=== PATIENT | male | born 1945 | race Caucasian/White ===

== ENCOUNTER 2018-06-18 13:00 | Day surgery (SDC) | payer MEDICARE, OTHER, SELFPAY ==
[2018-06-04 07:36] VITALS: BMI 20.7
[2018-06-18] VITALS (9 sets, daily range): BP systolic 94–156; BP diastolic 60–82; PULSE 64–77; RESP 8–15; TEMP 35.9–36.8; O2SAT 96–99; BMI 20.7
[2018-06-18] MEDS: LACTATED RINGERS 1,000 ML 100 ML IV (14:28)
--- NOTE | 2018-06-18 14:55 | PM.PREOP ---
Pre-operative Note Interval Note Pre-op Check: Yes History & Physical Reviewed by Physician and Yes Exam Performed Changes: No
[2018-06-18] MEDS: CEFAZOLIN 2 GM/100 ML FROZ.PIGGY IV (15:12)
[2018-06-18] MEDS: LACTATED RINGERS 1,000 ML 42 ML IV (15:12)
--- NOTE | 2018-06-18 15:27 | SUR.OPER ---
Supine on padded OR bed, head on pillow, arms secured on padded arm boards at <90 degrees abduction, legs uncrossed, safety belt at thigh, tape over blanket over lower legs.
[2018-06-18] MEDS: BUPIVACAINE 0.5% (PF) VIAL 30 ML INJ (15:32)
--- NOTE | 2018-06-18 16:41 | PM.OP.1 ---
Operative Date/Time/Diagnoses Date of procedure: 06/18/18 Time of procedure: 16:30 Pre-op diagnosis: Right inguinal hernia reducible Post-op diagnosis: same (Large indirect hernia along with a direct component.) Procedure & Clinicians Procedure: Repair of hernia with plug and patch technique. Same procedure as scheduled: Yes Indications: Symptomatic hernia Surgeon: Dakota Luo Click Yes if Unassisted: Yes Anesthesia Type: General Operative Notes Findings: Large direct and indirect hernia Closure Type: primary Specimen(s): none sent Implants & Drains: Mesh Estimated Blood Loss (mL): 5 Blood products transfused: none Procedure in detail: The patient was placed supine on the operating room table and underwent general LMA anesthesia. He was prepped and draped in the usual fashion. A transverse incision was made overlying the internal ring and carried down to the level of the external oblique. The external oblique was opened parallel with its fibers through the external ring. The cord structures were elevated. The cremaster was opened proximally and search made for an indirect sac. 1 was found of from surrounding structures. It was opened and found to have no contents. It was suture ligated with 3 0 Vicryl at the level of the deep epigastric vessels. Distal sac was removed. The stump was allowed to retract.. The floor was examined and was found to be essentially obliterated. I opened the floor and dissected the preperitoneal fat off the anterior abdominal wall up to the area of the indirect hernia. I placed a large plug in this defect and tacked it into place with interrupted Ethibond sutures. I then closed the floor over it in a modified shoulder ice repair technique using 0 Tycron suture material. A patch was placed across the floor and tacked at the pubic tubercle, the posterior lamella of the anterior rectus sheath, the ilioinguinal ligament, and superior lateral to the cord. The opening was modified as necessary to prevent tight constriction of the cord. Sutures of 0 Tycron were used to secure the mesh. The external oblique was closed with a running 3 0 Vicryl The subcu was closed with interrupted 3 0 Vicryl. The skin was closed with a running 4 0 Vicryl subcuticular stitch and Steri-Strips. Dressing was applied, the patient was awakened, and the patient was taken to the recovery area in good condition. Complications: none Condition: stable Disposition: PACU Plan for aftercare: Follow-up 10-14 days in the office
[2018-06-18] MEDS: fentaNYL 100 MCG/2 ML INJ 50 MCG IV ×2 (16:48→16:55)
[2018-06-18] MEDS: ONDANSETRON 4 MG/2 ML INJ IV (16:56)
[2018-06-18] MEDS: LORazepam 2 MG/ML SYRINGE 1 MG IV (17:16)
--- NOTE | 2018-06-18 17:16 | SUR.PHASEI ---
RECD REPORT AND PATIENT FROM JOEL LOCKWOOD
== END 2018-06-18 18:05 | disposition home or self-care (01) ==
PROVIDERS: Family Provider Family Medicine; PCP Family Medicine; Visit Provider Specialist
PROC: (CPT 49505; principal; 2018-06-18 14:45)
DX: K40.90 Unilateral inguinal hernia, without obstruction or gangrene, not specified as recurrent (principal); E11.9 Type 2 diabetes mellitus without complications; Z79.84 Long term (current) use of oral hypoglycemic drugs
CPT/HCPCS: 49505; C1781; J0690; J2060; J2405; J2704; J3010

== ENCOUNTER → 2018-09-29 14:23 | Outpatient (REF) | payer MEDICARE, OTHER, SELFPAY ==
[2018-09-29 14:45] LABS: Influenza A and B by PCR Rapid Negative (Negative)
== END ==
LOC: LAB 14:23
PROVIDERS: Family Provider Family Medicine; PCP Family Medicine; Visit Provider Family Medicine
DX: Z11.59 Encounter for screening for other viral diseases (principal)
CPT/HCPCS: 87400

== ENCOUNTER → 2022-07-26 14:27 | Outpatient (CLI) | payer MEDICARE, OTHER, SELFPAY ==
--- NOTE | 2022-07-26 14:31 | DI.MRI.S_ITS ---
PROCEDURE: MR LUMBAR SPINE WO CON INDICATIONS: LUMBAR STENOSIS/RADICULOPATHY,CERVICAL REGION TECHNIQUE: Noncontrast sagittal T1 spin echo and T2 fast echo, coronal T2, sagittal STIR, and T2 fast spin echo through the lumbar spine. In cases with scoliosis, additional coronal T2 fast spin echo may be performed. COMPARISON: [facility] Outside Film, CR, XR LUMBAR SPINE WITH OBLIQUES, 06/04/2022, 15:05. FINDINGS: Image quality: Excellent. Alignment and Curvature: 5 lumbar type vertebral bodies are present by plain film. Loss of normal lumbar lordosis. Mild diffuse leftward curvature of the lumbar spine. 4 mm of retrolisthesis of L1 on L2. 3 mm of retrolisthesis of L2 on L3 and L4 on L5. 4 mm of anterolisthesis of L5 on S1. Bone Marrow: Marrow is of normal overall signal. No acute vertebral body compression fractures. There is mild reactive signal throughout the endplates of the thoracolumbar spine. Spinal Cord: Conus medullaris terminates at the mid L1 level. Visualized cord demonstrates normal signal and size. Paraspinous Soft Tissues: No paravertebral masses. T12-L1: Mild disc height loss and desiccation. Mild diffuse disc bulge. Mild facet and ligamentum flavum hypertrophy. Mild epidural lipomatosis. Mild canal stenosis. No foraminal stenosis. L1-L2: Moderate disc desiccation. Mild disc height loss and diffuse disc bulge. Mild facet and ligamentum flavum hypertrophy. Mild canal stenosis. Mild bilateral foraminal stenosis. L2-L3: Moderate disc desiccation. Mild disc height loss and diffuse disc bulge. Mild facet and ligamentum flavum hypertrophy. Mild canal stenosis. Mild bilateral foraminal stenosis. L3-L4: Moderate disc desiccation. Mild disc height loss and diffuse disc bulge. Mild facet and ligamentum flavum hypertrophy. Mild epidural lipomatosis. Mild canal stenosis. Mild left and moderate right foraminal stenosis. L4-L5: Moderate disc height loss and desiccation. Moderate diffuse disc bulge. Mild facet and ligamentum flavum hypertrophy. Mild epidural lipomatosis. Mild canal stenosis. Moderate left greater than right foraminal stenosis. L5-S1: Moderate disc height loss and desiccation. Mild diffuse disc bulge with superimposed broad-based left posterolateral protrusion. Moderate facet hypertrophy. Mild canal stenosis. Severe left and mild right foraminal stenosis. Posterior deviation of the left S1 nerve root within the lateral recess. Compression of the left L5 nerve root within the neural foramen. IMPRESSION: 1. Multilevel degenerative disc and facet disease, as well as ligamentum flavum hypertrophy and epidural lipomatosis. 2. Mild multilevel canal stenosis. 3. Neural foraminal and lateral recess stenosis at L5-S1 associated with neural compression/deviation as described above. Recommend correlation with clinical symptoms to ascertain relevance of these findings. Dictated by: Homero Ramesh M.D. on 07/26/2022 at 16:17 Transcribed by: DOUGLAS on 07/26/2022 at 16:22 Approved by: Homero Ramesh M.D. on 07/26/2022 at 16:51
--- NOTE | 2022-07-26 14:31 | DI.MRI.S_ITS ---
PROCEDURE: MR CERVICAL SPINE WO CON INDICATIONS: LUMBAR STENOSIS/RADICULOPATHY,CERVICAL REGION TECHNIQUE: Noncontrast sagittal T1 spin echo and T2 fast spin echo, sagittal STIR, foraminal oblique sagittal T2 fast spin echo, and axial gradient echo or T2 fast spin echo through the cervical spine. COMPARISON: None. FINDINGS: Image quality: Excellent. Alignment and Curvature: 3 mm of retrolisthesis of C3 on C4. Bone Marrow: Marrow demonstrates normal overall signal. C6-C7 ankylosis anteriorly. Moderate reactive signal within the endplates adjacent to the C3-C4 and. C5-C6 intervertebral discs. Mild reactive signal adjacent to the remaining cervical and visualized upper thoracic intervertebral discs. Spinal Cord: Visualized spinal cord has normal size and signal. No cerebellar tonsillar herniation. Paraspinous Soft Tissues: No paravertebral masses. Prevertebral soft tissues are normal in thickness. C2-C3: Moderate disc desiccation. Mild diffuse disc bulge. Mild facet and uncovertebral hypertrophy. Mild canal stenosis. Moderate left and mild right foraminal stenosis. C3-C4: Moderate disc height loss and desiccation. Moderate diffuse disc bulge/osteophyte with superimposed broad-based right posterolateral protrusion/osteophyte. Moderate facet and uncovertebral hypertrophy bilaterally. Severe canal stenosis. Mild cord flattening. Severe right greater than left foraminal stenosis with right greater than left C4 nerve root compression. C4-C5: Mild disc height loss. Moderate disc desiccation. Mild diffuse disc bulge. Moderate facet and uncovertebral hypertrophy bilaterally. Mild canal stenosis. Severe left and moderate right foraminal stenosis. Left C5 nerve root compression. C5-C6: Moderate disc height loss and desiccation. Mild diffuse disc bulge. Mild left and moderate right facet and uncovertebral hypertrophy. Moderate canal stenosis. Moderate left and severe right foraminal stenosis. Right C6 nerve root compression. C6-C7: Severe disc height loss and desiccation. Partial ankylosis anteriorly. Moderate facet and uncovertebral hypertrophy bilaterally. Mild canal stenosis. Moderate left and severe right foraminal stenosis. Right C7 nerve root compression. C7-T1: Severe disc height loss and desiccation. Mild diffuse disc bulge. Mild facet and uncovertebral hypertrophy bilaterally. Mild canal stenosis. Moderate left and severe right foraminal stenosis. Right C8 nerve root compression. IMPRESSION: 1. Multilevel degenerative disc and facet disease, as well as uncovertebral hypertrophy. 2. Multilevel canal stenoses, worst at C3-C4 where there is mild cord flattening. 3. Multilevel foraminal stenoses, worst at C3-C4, C4-C5, C5-C6, C6-C7, and C7-T1, where there is associated intraforaminal nerve root compression. Recommend correlation with clinical symptoms to ascertain relevance of these findings. Dictated by: Homero Ramesh M.D. on 07/26/2022 at 16:13 Transcribed by: DOUGLAS on 07/26/2022 at 16:16 Approved by: Homero Ramesh M.D. on 07/26/2022 at 16:50
== END ==
PROVIDERS: Referring Provider Physical Medicine & Rehabilitation; Visit Provider Physical Medicine & Rehabilitation
DX: M48.062 Spinal stenosis, lumbar region with neurogenic claudication (principal); M51.36 Other intervertebral disc degeneration, lumbar region; M50.11 Cervical disc disorder with radiculopathy, high cervical region; M48.02 Spinal stenosis, cervical region
CPT/HCPCS: 72141; 72148

== ENCOUNTER 2023-09-04 07:11 | Day surgery (SDC) | payer OTHER, SELFPAY ==
--- NOTE | 2023-09-03 08:19 | PM.HP.1 ---
History of Present Illness History of Present Illness Date Patient Seen: 09/04/23 Time Patient Seen: 08:34 Chief complaint: OPB Narrative: 77M with a recurrent right inguinal hernia here for a laparoscopic repair. No interval changes in health. [facility] Medical History Basal cell carcinoma HTN (hypertension) BPH w urinary obs/LUTS Diabetes mellitus type 2 in nonobese Surgical History H/O left inguinal hernia repair H/O hemorrhoidectomy H/O hernia repair Family History Father Heart disease Mother Heart disease Grandmother Gallstones Brother Stroke Social History household members: none occupational status: previously employed Smoking Status: Never smoker alcohol intake: former substance use type: does not use Meds Home Medications and Allergies Home Medications Medication Instructions Recorded Confirmed Type acetaminophen 500 mg capsule 500 mg PO Q6H PRN Pain, Mild 08/01/23 09/04/23 History hydrochlorothiazide 25 mg tablet 25 mg PO DAILY 08/01/23 09/04/23 History hydrocodone 5 mg-acetaminophen 325 1 tab PO DAILY PRN Pain (Scale 08/01/23 09/04/23 History mg tablet Score 1-3) metformin 500 mg tablet 500 mg PO DAILY 08/01/23 09/04/23 History methocarbamol 750 mg tablet 750 mg PO TID PRN Muscle Spasm 08/01/23 09/04/23 History rosuvastatin 10 mg tablet 10 mg PO DAILY 08/01/23 09/04/23 History spironolactone 25 mg tablet 25 mg PO DAILY 08/01/23 09/04/23 History oxycodone 5 mg tablet 5 mg PO Q6H PRN pain #30 tabs 09/03/23 Rx Allergies Allergy/AdvReac Type Severity Reaction Status Date / Time Tetanus Vaccines and Toxoid Allergy Severe swelling, Verified 09/04/23 06:36 [TETANUS VACCINES AND TOXOID] nausea oxycodone AdvReac Unknown wanted to Verified 09/04/23 08:10 jump out of my skin Exam Narrative Exam Narrative: Gen-Adult man alert and oriented Abdomen-Right inguinal hernia marked with my inititials Assessment & Plan Assessment and plan (1) Recurrent right inguinal hernia: Status: Acute Assessment & Plan narrative: 77M with a recurrent right inguinal hernia here for a laparoscopic repair. Overview of the operation reviewed. Operative risks including but not limited to bleeding, infection, reoccurrence, damage to surrounding structures, chronic pain reviewed. Questions have been answered and he provides his written and verbal consent to proceed.
[2023-09-04] VITALS (15 sets, daily range): BP systolic 137–178; BP diastolic 63–83; PULSE 57–104; RESP 10–18; TEMP 36.2–37.2; O2SAT 94–99; BMI 19.8
[2023-09-04] MEDS: LACTATED RINGERS 1,000 ML 42 ML IV (08:39)
[2023-09-04] MEDS: CEFAZOLIN 2 GM/100 ML PREMIX 100 ML IV (09:00)
--- NOTE | 2023-09-04 09:10 | SUR.OPER ---
Supine on padded OR bed, head on pillow, arms padded and tucked at sides, legs uncrossed, safety belt at thigh, tape over blanket over lower legs .
[2023-09-04] MEDS: BUPIVACAINE 0.25% (PF) VIAL 30 ML INJ (09:17)
--- NOTE | 2023-09-04 10:18 | PM.OP.1 ---
Operative Date/Time/Diagnoses Date of procedure: 09/04/23 Time of procedure: 10:18 Pre-op diagnosis: Recurrent right inguinal hernia Post-op diagnosis: same Procedure & Clinicians Procedure: Laparoscopic repair of recurrent right inguinal hernia Same procedure as scheduled: Yes Indications: 77-year-old man with a symptomatic recurrent right inguinal hernia , previous open repair Surgeon: Barry Copeland Click Yes if Unassisted: Yes Anesthesia Type: General Operative Notes Findings: Right- Direct floor defect. Well adherent plug of mesh. Cord lipoma Specimen(s): none sent Estimated Blood Loss (mL): 20 Procedure in detail: The patient was brought to the operating room and placed supine on the table. Bilateral sequential compression devices were applied. General anesthesia was induced and they were intubated with an endotracheal tube. A ferreira cath was placed in sterile fashion. They received Ancef prior to skin incision. They were prepped and draped in sterile fashion. A time out was performed to ensure the correct patient, procedure and necessary equipment within the operating room. The skin was infiltrated with 0.25% bupivicaine. A 1 cm supra umbilical midline incision was made. The fascia was sharply incised and the abdomen entered traumatically. A 10mm balloon port was placed and pneumoperitoneum was established at 15mm Hg. Inspection of the abdomen demonstrated no evidence of injury upon entry. Two 5 mm ports were then placed under direct visualization in the right and left lower quadrant lateral to the rectus muscle. A right direct hernia was observed. The peritoneum 4 cm superior to the deep inguinal ring between the medial umbilical ligament and the anterior superior iliac spine was incised. The medial preperitoneal dissection was carried out into the space of Retzius bluntly, the bladder was swept inferiorly, the pubis and Marcus's ligament were identified. Next attention was turned towards the lateral aspect of the peritoneal flap. The preperitoneal fat with the testicular vessels was carefully dissected off the inferior peritoneal flap. The cord was carefully inspected there was a cord lipoma which was skeletonized off the cord.. The attachements to the direct hernia sac were divided and the direct defect was reduced. There was a well adhered plug of mesh near the direct floor defect which was left in place. A medium size Bard 3D Max mesh was then placed into the abdomen and positioned such that the myopectineal orifice was completely covered with good overlap on all sides. The peritoneal flap was then repositioned back to its original position and a running V lock suture was used to close the peritoneum such that no bowel could herniate into the preperitoneal space. The area was examined for hemostasis. Medium size was used here because the plug of previous mesh was not removed and interfered with creating a larger pocket. The 5mm trocars were removed under direct visualization and pneumoperitoneum was deflated through the umbilical trocar, The fascia at the umbilicus was closed with 0-Vicryl in figure of 8 fashion, skin closed with 4-0 Monocyl followed by Dermabond. The sponge and instrument count at the end of the case was correct. Both testicles were entirely within the scrotum at the end of the case. The patient emerged from anesthsia was extubated and transferred to recovery in stable condition. Complications: none Post-operative Condition: stable Disposition: observation
[2023-09-04] MEDS: TRAMADOL 50 MG TABLET PO ×2 (12:19→18:23)
[2023-09-04] MEDS: ACETAMINOPHEN 325 MG TABLET 650 MG PO ×2 (12:19→18:23)
--- NOTE | 2023-09-04 13:03 | CM.DANOTE ---
Initial DCP Assessment Note Pt is a 77 yo female, resident of [place], now POD#0 from right lap hernia repair with mesh PCP: Chayo Hammonds Payer: MONICO Garcia Reviewed chart, pt discussed in multidisciplinary rounds this morning. Met w/patient to introduce self and role. Patient lives alone, indp in all aspects at baseline. Patient denies support once home, says he could have his neighbor a few doors down assist if he needed it. Patient will likely drive himself home vs taxi or friend (?) patient elusive re how he will get home. No barriers identified at this time to patient's safe discharge home w/family to assist; close outpatient f/u recommended. CM team will plan to follow closely in case any DC needs or concerns arise. ALBA James Discharge Planning/Care Management CM Discharge Assessment Start: 09/04/23 13:01 Freq: Status: Active Protocol: Document 09/04/23 13:01 RONAL (Rec: 09/04/23 13:03 RONAL [id number]) Discharge Planning Assessment Assigned Channel Machine Operator ALBA Ma DPOA/Assigned Designee Name Elke Horner, sister ([place]) Contact Information [phone] Advance Directives? Yes Advance Directives on File No History Provided By Patient,Medical Record Prior Living Arrangements House Household Members none Type of transporation used prior to Drives own vehicle admit Independent with ADL's Yes Is patient alert and oriented? Yes Barriers to Discharge No Discharge Plan Home Transportation Arrangement Self vs taxi or friend Referrals Initiated None needed
[2023-09-05] VITALS (8 sets, daily range): BP systolic 131–156; BP diastolic 60–77; PULSE 64–80; RESP 16–17; TEMP 36.4–36.8; O2SAT 95–99
[2023-09-05] MEDS: ACETAMINOPHEN 325 MG TABLET 650 MG PO (00:37)
[2023-09-05] MEDS: TRAMADOL 50 MG TABLET PO (00:38)
[2023-09-05] MEDS: HYDROMORPHONE 0.5 MG INJ IV ×2 (02:04→07:40)
[2023-09-05] MEDS: hydroCHLOROthiazide 25 MG TABLET PO (08:26)
[2023-09-05] MEDS: SPIRONOLACTONE 25 MG TABLET PO (08:26)
[2023-09-05] MEDS: METFORMIN HCL 500 MG TABLET PO (08:26)
--- NOTE | 2023-09-05 11:46 | CM.DPC ---
DCP Cont. Reviewed EMR and team rounds for status updates. Pt is post-op day 1, recovering well per EMR. Potentially d/c later today to home. Family will transport once he's medically cleared for d/c. Will continue to monitor for any further d/c needs, none anticipated at this time.
--- NOTE | 2023-09-05 13:19 | PT.IIE ---
Current Diagnoses Unilateral inguinal hernia, without obstruction or gangrene, not specified as recurrent (09/04/23) Unilateral inguinal hernia, without obstruction or gangrene, recurrent (09/04/23) Surgery Performed Operation Date: 09/04/23 08:45 Actual Procedures p Laparoscopic Recurrent Inguinal Hernia Repair with mesh(Right) - Barry Copeland MD Surgical History (Last Reviewed 09/04/23 @ 08:35 by Barry Copeland MD) H/O hemorrhoidectomy H/O hernia repair H/O left inguinal hernia repair Medical History (Last Reviewed 09/04/23 @ 08:35 by Barry Copeland MD) Basal cell carcinoma BPH w urinary obs/LUTS Diabetes mellitus type 2 in nonobese HTN (hypertension) Physical Therapy Inpatient Evaluation/Re-Eval M1 PT/OT-IP Prior Functional Status Start: 09/05/23 12:00 Freq: NEEDED Status: Active Protocol: Document 09/05/23 12:10 MB (Rec: 09/05/23 13:19 MB [id number]) Medical Review Prior Functional Status Medical History Reviewed Yes Diet/Fluid Consistency Regular Communication WNLs Mobility and Gait I Activities of Daily Living and IADL's I Prior Functional Level (Other details) I Social History Household Members none Living Arrangements House Number of Floors (Floors) Two Floors Number of Stairs To Enter/Railing? No steps to enter and flight inside with left rail. Pt cannot answer how many steps when asked Home Environment Standard Height Toilet,Walk in Shower Additional Social History Comment Pt has one friend and one neighbor who have checked in on him and his sister in [place] got him a fridge so he has a few weeks of meals so he can stay downstairs when he goes home. M2 PT-IP Current Condition Start: 09/05/23 12:00 Freq: NEEDED Status: Active Protocol: Document 09/05/23 12:10 MB (Rec: 09/05/23 13:19 MB [id number]) Physical Therapy Current Condition Current Condition Evaluation Date 09/05/23 Treatment Diagnosis Right inguinal hernia s/p repair M3 PT-IP Subjective Start: 09/05/23 12:00 Freq: NEEDED Status: Active Protocol: Document 09/05/23 12:10 MB (Rec: 09/05/23 13:19 MB [id number]) Subjective Physical Therapy Visit Type Type Initial Evaluation Visit Start Time 12:10 Visit Stop Time 12:40 Number of ADVERTISING STRATEGIST Visits 0 Physical Therapy Visit Comments Patient Comments Pt c/o not sleeping all night and of having the hiccups. Patient Goals To go home Therapy Pain Assessment Pain When Pain Assessed At Rest Pain Present Pain Present Pain Reported Location Abdomen Intensity 5 Scale Used ElizabethYasmin (Faces) Description Acute M4 PT-IP Mobility and Gait Start: 09/05/23 12:00 Freq: NEEDED Status: Active Protocol: Document 09/05/23 12:10 MB (Rec: 09/05/23 13:19 MB [id number]) PT-Bed Mobility Assessment Rolling Type of Rolling Log Rolling,Roll to Right Level of Assist Standby Assistance,1 Person Assistance Supine to Sit Supine to Sit Standby Assistance,1 Person Assistance,Head of Bed Elevated,Bedrails Scooting Scooting to Edge of Bed Standby Assistance PT-Transfer Assessment Sit to and From Stand Sit to and from Stand Contact Guard Assistance,1 Person Assistance,Use of Upper Extremities Equipment Transfer Assistive Device Gait Belt,Front Wheeled Walker Transfer Ability Level of Assist Contact Guard Assistance,1 Person Assistance,Use of Upper Extremities Comments Mobility Comments Pt does not answer all questions and occ states that he does not want to answer questions. He does not allow PT to flatten out bed for log rolling and he using bed controls to raise the HOB as PT attempted to educate in log rolling to protect abdomen. Gait Assessment Gait Gait Assistance Required: Standby Assistance,Contact Guard Assist Distance (Feet) 75 Able to Maintain Weight Bearing Status Yes During Gait Assistive Devices Assistive Device Gait Belt,Front Wheeled Walker Orthotic/Prosthetic Devices or Brace: No Gait Deviations General Gait Pattern Antalgic Factors Limiting Gait Function Factors Limiting Gait Function Decreased Activity Tolerance, Poor Balance Comments Gait Comments 75' with RW and SBA and 100' without AD with SBA to CGA. Pt with occ imbalance and no true LOB. PT ed pt in benefits of RW for home use if he will use it and he declines. Stair Climbing Assessment Evaluation Level of Assist On Stairs Standby Assistance,1 Person Assistance Devices Stair Climbing Assistive Devices Left Railing Technique/Endurance Stair Climbing Direction Ascend and Descend Stair Climbing Technique Step Over Step Number of Steps Climbed 3 Query Text: Stair Climbing Set # Repetitions (reps) 1 Comments Stair Climbing Comments Both hands on left rail and pt is able to perform step over step reciprocal gait even with this hand placement as he works hands up the rail and down the rail with ascend and descend PT-Balance Assessment Sitting Balance and Reactions Static Sitting Balance Ability Good Dynamic Sitting Balance Ability Good Standing Balance and Reactions Static Standing Balance Ability Fair Dynamic Standing Balance Ability Fair Device Used RW or no AD M5 PT-IP Objective Assessments Start: 09/05/23 12:00 Freq: NEEDED Status: Active Protocol: Document 09/05/23 12:10 MB (Rec: 09/05/23 13:19 MB [id number]) Orientation Orientation/Cognition Level of Alertness Alert Orientation Name,Age,Birthday,Month,Date, Year,Day of Week,Place, Situation Language Function Ability No Deficits Noted Safety Awareness Decreased Safety Awareness Memory Description No Deficits Noted Comments Pt is pleasant and conversant but does not easily answer PLOF questions and occ states that he does not want to answer questions. Hiccups resolve with activity with PT. Gross Range of Motion Upper Extremity ROM Assessment Within Functional Limits Impairments Pt has old left shoulder issues per his report Lower Extremity ROM Assessment Within Functional Limits Strength Upper Extremity Strength Assessment Within Functional Limits Lower Extremity Strength Assessment Within Functional Limits M6 PT-IP Treatment Start: 09/05/23 12:00 Freq: NEEDED Status: Active Protocol: Document 09/05/23 12:10 MB (Rec: 09/05/23 13:19 MB [id number]) Physical Therapy Treatment Education Education Provided Safety M7 PT-IP Assessment and Plan Start: 09/05/23 12:00 Freq: NEEDED Status: Active Protocol: Document 09/05/23 12:10 MB (Rec: 09/05/23 13:19 MB [id number]) PT Summary Assessment and Plan Potential Rehabilitation Potential Good Status of Condition at Evaluation Evolving Summary Impairments Pain,Balance,Bed Mobility, Transfers,Gait,Activity Tolerance Progress Towards Goals Slow Progress due to Activity Tolerance Assessment Summary Pt is a pleasant and conversant 77 y/o male who reports not sleeping, high pain and hiccups since surgery . Though pt is conversant, he does not readily answer PLOF questions when PT asks and PT cannot fully glean home set-up to determine needs. Discussed benefits of log rolling to protect abdomen and pt refuses and raises HOB. Discussed benefits of PT obtaining RW in hospital for pt to use at home if he will use it and he declines. If in the hospital, another PT treatment to determine I with transfers, gait and steps as well as to try further abdominal care training (log rolling, lifting , etc). Hiccups resolve with mobility and pt is willing to sit up in recliner after PT and states he will not get up without nsg assistance. Call helm in reach. Goals Bed Mobility Goal Independent Transfer Goal Independent Gait Goal Independent Gait Distance 100 Other Goals Ascend and descend at least 9 steps with rail and I. Days to Meet Goals 2 Frequency of Treatment Frequency Of Treatment Once a Day Treatment Plan Physical Therapy Treatment Plan Bed Mobility Training,Transfer Training,Gait Training, Therapeutic Exercise,Balance Retraining,Post Op Education, Discharge Planning,Hot or Cold Pack Precautions Abdominal Surgery Precautions Log Roll,Lifting Restrictions, Gait Belt above Incisional Area Weight Bearing Status Weight Bearing Status Weight Bear as Tolerated Recommendations To Nursing Amount of Assist Needed Standby Assistance,1 Person Assist Discharge Recommendations PT Discharge Recommendations Home with Assistance Other Discharge Recommendations Possibly HHPT consult. Pt currently refuses RW for home. Transportation Needs at Discharge Private Vehicle
--- NOTE | 2023-09-05 16:39 | PC.NURSE ---
Day shift: Paperwork signed and all questions answered. Pt has a new WC he will be using at home. No new MD scripts. Pt has all personal belongings.Left unit via WC w/ this blurb writer at approx 1630. He wanted to wait for his ride at main entrance in the fresh air. Lap sites remains clean and dry w/ no s/s of infection.
== END 2023-09-05 16:41 | disposition home or self-care (01) ==
LOC: OR 07:12 → AC 07:14
PROVIDERS: PCP Registered Nurse; Referring Provider Surgery; Visit Provider Surgery
PROC: 0YQ54ZZ Repair Right Inguinal Region, Percutaneous Endoscopic Approach (ICD-10-PCS; CPT 49651; principal; 2023-09-04 08:45)
DX: K40.91 Unilateral inguinal hernia, without obstruction or gangrene, recurrent; D17.6 Benign lipomatous neoplasm of spermatic cord
CPT/HCPCS: 49651; 82962; 97161; J0330; J0690; J1100; J1170; J1885; J2405; J2704; J3010; J3490